=== PATIENT | female | born 1970 | race Caucasian/White ===

== ENCOUNTER 2017-07-27 22:26 | Emergency (ER) | payer MEDICAID ==
[~2017-07-27] VITALS: Ht 157.5 cm; Wt 69.5 kg
[2017-07-27 23:09] VITALS: Ht 157.5 cm; Wt 69.5 kg
[2017-07-28 01:15] VITALS: BP 105/72
== END 2017-07-28 01:15 | disposition home or self-care (01) ==
LOC: ED 22:26
DX: R11.10 Vomiting, unspecified (principal); R19.7 Diarrhea, unspecified; R42 Dizziness and giddiness